=== PATIENT | male | born 1950 | race Caucasian/White ===

== ENCOUNTER → 2023-04-29 13:48 | Outpatient (REF) | payer MEDICARE, SELFPAY | LOC: RCS 13:48 | PROVIDERS: ATTENDING PHYSICIAN Internal Medicine Cardiovascular Disease; FAMILY PHYSICIAN Family Medicine | DX: I48.21 Permanent atrial fibrillation (principal); R06.00 Dyspnea, unspecified | CPT/HCPCS: 93306; 93356 ==

== ENCOUNTER → 2023-08-07 10:23 | Outpatient (REF) | payer MEDICARE, SELFPAY | LOC: RAD 10:23 | PROVIDERS: ATTENDING PHYSICIAN Internal Medicine Cardiovascular Disease; FAMILY PHYSICIAN Family Medicine | DX: I50.30 Unspecified diastolic (congestive) heart failure (principal) | CPT/HCPCS: 78803; A9538 ==

== ENCOUNTER 2023-09-25 17:31 | Emergency (ER) | payer MEDICARE, SELFPAY ==
[2023-09-25] VITALS (17 sets, daily range): BP systolic 116–173; BP diastolic 60–92; BMI 31.3
--- NOTE | 2023-09-25 18:15 | ED.GENMED ---
History of Present Illness
<MARK Olguin - Last Filed: 09/25/23 20:35>
General
Chief Complaint: Numbness
Source: patient
Exam Limitations: none
Time Seen by Provider: 09/25/23 17:56
History of Present Illness
History of Present Illness:
This is a 73 year old male that comes in with c/o tingling and numbness on the left sided of his body. States that he started with tingling going down his left arm. States that this subsided and then he started with this very slight numbness in the
left arm, face and leg. States that there was no injuries and he had not taken a nap and slept on that side. States that he is on Eliquis. State that his Tinnitus is bothering him and he feels very slightly lightheaded. Denies any fever, chills,
chest pain, SOB, abd pain, nausea, vomiting, diarrhea, headache, urinary burning.
Past History
<MARK Olguin - Last Filed: 09/25/23 20:35>
Past History
ED Past Medical History: Arrthythmia (Atrial fib) and Other (Headache, Vocal cord paralysis, Vertigo, Tinnitus, Celiac, Anemia, Being worked up for Cardiac amyloidosis)
ED Past Surgical History: Appendectomy, Orthopedic (Bilateral carpal tunnel, ) and Other (Prior Trach, discectomy, cataracts)
Social History
Tobacco: Non-smoker
Alcohol: Occasional
Personal:
Living: with family
Review of Systems
<MARK Olguin - Last Filed: 09/25/23 20:35>
Review of Systems
All Other Systems: ROS reviewed and negative except as documented in HPI and ROS
Constitutional: Reports no symptoms; Denies fever or chills
EENT: Reports no symptoms
Respiratory: Reports no symptoms; Denies cough or trouble breathing
Cardiac: Reports no symptoms; Denies chest pain
ABD/GI: Reports no symptoms; Denies abdominal pain, nausea, vomiting or diarrhea
: Reports no symptoms; Denies dysuria, frequency or urgency
Musculoskeletal: Reports no symptoms
Skin: Reports no symptoms
Neurological: Reports numbness (and tingling left sided of face, arm and leg) and other (Lightheadedness); Denies headache
Psychiatric: Reports no symptoms
Phy Exam
<MARK Olguin - Last Filed: 09/25/23 20:35>
General Physical Exam
General Presentation: well appearing and no apparent distress
General age: appears stated age
General Skin: warm and dry
General Habitus: elderly
General Mental: alert
General Hydration: appears well hydrated
ENT Exam
ENT Exam: TM's normal, pharynx normal and neck supple
Eye Exam
Eye Exam: PERRL and EOMI
Cardiovascular Exam
Cardiovascular Exam: no edema, normal peripheral pulses and irregularly irregular
Pulmonary Exam
Pulmonary Exam: lungs clear, no respiratory distress, no rales, chest non tender, no crackles, no rhonchi, no wheezing and no cough
Gastrointestinal Exam
Gastrointestinal Exam: normal bowel sounds, non tender, soft, no organomegaly, no pulsatile mass and non distended
NIH Stroke Score
Level of Consciousness: 0 - Alert
LOC questions: 0-Answers both correctly
LOC Commands: 0-Performs both correctly
Best Gaze: 0-Normal
Visual Carreon: 0=Normal, no visual loss
Facial palsy: 0=Normal, symmetrical
Motor - Right Arm: 0=No drift 10 seconds
Motor - Left Arm: 0=No drift 10 seconds
Motor - Right Le-No drift 5 seconds
Motor - Left Le-No drift 5 seconds
Limb Ataxia: 0-Absent
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
Best Language: 0-No aphasia
Dysarthria: 0-Normal
Extinction and Inattention: 0-No abnormality
Total Score:: 1
Musculoskeletal Exam
Musculoskeletal Exam: full ROM and no edema
Skin Exam
Skin Exam: normal color, warm/dry, no rash and no petechia
Psychiatric Exam
Psychiatric Exam: normal mood/affect
<Michael Kay DO - Last Filed: 09/25/23 21:53>
NIH Stroke Score
Total Score:: 1
Course
<MARK Olguin - Last Filed: 09/25/23 20:35>
Orders/Labs/Results
Orders:
Orders
09/25/23 17:38
Electrocardiogram (*1) Urgent
Reason for Study: Fatigue / Weakness
EKG- Treatment ONCE
09/25/23 18:15
CT Head W/o Iv Contrast Urgent
Comment:
Reason For Exam: Numbness left sided of body
09/25/23 18:19
Complete Blood Count/With Diff Urgent
Comprehensive Metabolic Panel Urgent
Protime/PTT Urgent
Troponin I Urgent
09/25/23 19:34
Neurosurgery Consult Urgent
Consulting Provider: Jorge Deras
Was physician already notified: Yes
09/25/23 19:43
Prothrombin Complex(Pcc),Human [Kcentra] 2,156 unit Empty Viaflex Container 100 ml [Viaflex Empty Container] 80 ml IV NOW
Does patient have a dx of serious acute active bleeding?: Yes
Does patient have prior history of HIT?: No
Urgent surgery/invasive procedure planned in next 6 hours?: No
09/25/23 21:52
Labetalol HCl [Trandate] 10 mg IV NOW STA
Abnormal Lab Results
09/25/23
18:19
RBC 3.74 L 10^6/uL
(4.70-6.10)
Hgb 11.1 L g/dL
(13.0-18.0)
Hct 33.5 L %
(39.0-52.0)
Absolute Monos (auto) 1.0 H 10^3/uL
(0.1-0.6)
Lymphocytes % 18.8 L %
(20.5-51.1)
Monocytes % 13.1 H %
(1.7-9.3)
Sodium 134 L mmol/L
(135-145)
09/25/23 18:19
09/25/23 18:19
H/H slightly low. Troponin <0.012, PT 13.6 with INR 1.03, PTT 30.9
Vital Signs
Initial and Last Documented VS:
Initial Vital Signs
Temp Pulse Resp BP Pulse Ox
99.2 F 73 18 153/92 98
09/25/23 17:33 09/25/23 17:33 09/25/23 17:33 09/25/23 17:33 09/25/23 17:33
Last Documented Vital Signs
Temp Pulse Resp BP Pulse Ox
99.2 F 74 13 127/73 95
09/25/23 17:33 09/25/23 21:00 09/25/23 20:00 09/25/23 21:00 09/25/23 20:45
Fur Scraper consulted with Physician
Fur Scraper consulted with physician?: Yes
Name of Physician Consulted: Dr. Kay
<Michael Kay, DO - Last Filed: 09/25/23 21:53>
Orders/Labs/Results
Orders:
Orders
09/25/23 17:38
Electrocardiogram (*1) Urgent
Reason for Study: Fatigue / Weakness
EKG- Treatment ONCE
09/25/23 18:15
CT Head W/o Iv Contrast Urgent
Comment:
Reason For Exam: Numbness left sided of body
09/25/23 18:19
Complete Blood Count/With Diff Urgent
Comprehensive Metabolic Panel Urgent
Protime/PTT Urgent
Troponin I Urgent
09/25/23 19:34
Neurosurgery Consult Urgent
Consulting Provider: Jorge Deras
Was physician already notified: Yes
09/25/23 19:43
Prothrombin Complex(Pcc),Human [Kcentra] 2,156 unit Empty Viaflex Container 100 ml [Viaflex Empty Container] 80 ml IV NOW
Does patient have a dx of serious acute active bleeding?: Yes
Does patient have prior history of HIT?: No
Urgent surgery/invasive procedure planned in next 6 hours?: No
09/25/23 21:52
Labetalol HCl [Trandate] 10 mg IV NOW STA
Abnormal Lab Results
09/25/23
18:19
RBC 3.74 L 10^6/uL
(4.70-6.10)
Hgb 11.1 L g/dL
(13.0-18.0)
Hct 33.5 L %
(39.0-52.0)
Absolute Monos (auto) 1.0 H 10^3/uL
(0.1-0.6)
Lymphocytes % 18.8 L %
(20.5-51.1)
Monocytes % 13.1 H %
(1.7-9.3)
Sodium 134 L mmol/L
(135-145)
09/25/23 18:19
09/25/23 18:19
Vital Signs
Initial and Last Documented VS:
Initial Vital Signs
Temp Pulse Resp BP Pulse Ox
99.2 F 73 18 153/92 98
09/25/23 17:33 09/25/23 17:33 09/25/23 17:33 09/25/23 17:33 09/25/23 17:33
Last Documented Vital Signs
Temp Pulse Resp BP Pulse Ox
99.2 F 74 13 127/73 95
09/25/23 17:33 09/25/23 21:00 09/25/23 20:00 09/25/23 21:00 09/25/23 20:45
<MARK Olguin - Last Filed: 09/25/23 20:35>
MDM/Problems Addressed
Differential Diagnosis Includes:
Parasthesias, CVA
MDM/Problems Addressed:
This is a 73 year old male that comes in with c/o numbness and tingling of the left face, arm and leg. States that it started first with Tingling and then this went away and there was very slightly numbness on the left side. Patient is on Eliquis.
Will get labs, CT scan.
Spoke with Dr. Deras neuro surgery. Reviewed CT scan. Awaiting to see if patient can stay here.
Ordered for the Eliquis to be revered and patient can stay here.
Hospitalist will not except patient due to the Eliquis patient was taking. Spoke with Dr. Meade at [facility] as this is the ICU attending and he will except patient. Dr. Deras also is aware of patient and he will be transferred to [facility]. .
Chronic conditions affecting care:
NA
Acute Exacerbation and/or Progression of Chronic Illness:
NA
<MARK Olguin - Last Filed: 09/25/23 20:35>
*Radiology
Radiology exam reviewed: radiology read reviewed (CT-Small right basal ganglia hemorrhage, most commonly secondary to long-standing hypertension)
*Pulse Oximetry
Patient hypoxic: no
*EKG
Interpreted by ED Provider?: Yes
Heart Rate: 68
Rate: normal
Rhythm: a-fib
Anderson: normal axis
QRS Pattern: normal QRS
Ischemia: no ischemia
*Scow Captain Interpretation
Rate: normal
Heart Rate: 81
Rhythm: a-fib
*Critical Care Note
Total Time (30-74mins, 75-104mins- exclusive of procedures): Not Applicable
ED Attending Note
<MARK Olguin - Last Filed: 09/25/23 20:35>
-
Portions of this chart may have been created with voice recognition software.� Occasional wrong word or��sound alike� substitutions may have occurred due to the inherent limitations of voice recognition software.
<Michael Kay DO - Last Filed: 09/25/23 21:53>
ED Attending Note
Patient seen and examined by attending physician: Yes
I performed the substantive portion of visit, reviewed & personally made and approve the management plan that is documented in note by myself or GET.: Yes
ED Attending Note:
73-year-old male presents with left-sided paresthesias, left arm subtle weakness and uncoordination and tripping over his left foot. Symptoms began at 5 PM. Patient has a vague sense of a headache. He does take Eliquis. Last dose was this
morning. Patient is right-hand dominant.
General: Awake, Alert, Oriented X3. No acute distress.
Vitals: unremarkable
Head: Atraumatic
Eyes: Pupils equal, EOMI
Throat: Airway intact, no exudates
Neck: Trachea midline
Lungs: Clear and equal b/l
Heart: Regular rate, no murmurs
Abd: Soft, Nontender, No pulsatile mass
Neuro: Cranial nerves intact, mild left lower extremity drift, mild decrease sensation left face
Skin: Warm, dry, no rash
Extremities: pulses equal b/l, no edema
CT shows small right basal ganglia hemorrhage likely related to hypertension. I discussed the patient's presentation with Dr. Deras who is on-call for neurosurgery. He recommends reversal of Eliquis but patient cannot stay here for
observation as this is very unlikely to ever require surgical intervention
Critical care statement: A total of 32 minutes of critical care time was provided for this patient. This includes management of unstable vital signs, evaluation of the patient at bedside, reviewing the patient's pertinent medical records, discussion
with consultants, review of old EKGs and review of pertinent medical records. This time with separate from time utilized to perform the aforementioned documented procedures
Discharge Plan
Departure
Patient Disposition: Acute Care Hospital
Date of Disposition: 09/25/23
Time of Disposition: 20:28
Admit to: ICU
Patient with high blood pressure during this ER visit?: Yes
Condition: Good
Covid-19: Not Applicable
Discharge Problem:
Right basal ganglia Hemorrhage
Prescriptions:
No Action
amlodipine 5 mg Tablet
5 mg PO HS
folic acid 400 mcg Tablet
0.4 mg PO DAILY
furosemide 20 mg Tablet
20 mg PO BID
metoprolol succinate 25 mg Tablet Extended Release 24 Hr
25 mg PO HS
Eliquis 5 mg Tablet
5 mg PO BID
Jardiance 10 mg Tablet
10 mg PO DAILY
cyanocobalamin (vitamin B-12) 1,000 mcg Tablet
1,000 mcg PO DAILY
ferrous sulfate 325 mg (65 mg iron) Tablet
325 mg PO MOWEFR
docusate sodium 100 mg Tablet
100 mg PO DAILYPRN PRN (Reason: constipation)
Visbiome 112.5 billion cell Capsule
1 cap PO DAILY
Referrals:
UNKNOWN - PT DOES,NOT KNOW [Family Provider] -
Hospital Transfer
Other hospital: [facility]
I certify that the patient requires transfer: Yes
Discussed case with accepting physician: Dr. Meade
Reason for transfer: higher level of care and specialties available
Interventions
Interventions:
*Risk Screen - Suicide Last Done: 09/25/23 17:33
*General Assessment Last Done: 09/25/23 17:33
*Neglect/Abuse Screening Last Done: 09/25/23 17:33
ED- Fall Risk Assessment Last Done: 09/25/23 18:04
*ED COVID-19 Vaccine History Last Done: 09/25/23 17:33
ED- Neurological Assessment Last Done: 09/25/23 19:15
Discharge Date and Time
Print Language: ERITREAN
[2023-09-25 18:31] LABS: % Basophils 0.4 % (0-2); % Eosinophils 1.1 % (0-6); % Immature Granulocytes 0.1 % (0-0.5); % Lymphocytes 18.8 % (20.5-51.1); % Monocytes 13.1 % (1.7-9.3); % Neutrophils 66.5 % (42.2-75.2); Absolute Eosinophils 0.1 10^3/uL (0-0.7); Absolute Lymphocytes 1.4 10^3/uL (1.2-3.4); Hematocrit 33.5 % (39.0-52.0); Hemoglobin 11.1 g/dL (13.0-18.0); Mean Corp Hgb Conc. 33.1 g/dL (33.0-37.0); Mean Corpuscular Hgb 29.7 pg (27.0-31.0); Mean Corpuscular Volume 89.6 fL (80.0-94.0); Mean Platelet Volume 8.6 fL (7.4-10.4); Nucleated Red Blood Cells % 0 % (-); Platelet Count 270 10^3/uL (130-400); Red Blood Cell Count 3.74 10^6/uL (4.70-6.10); Red Cell Dist. Width 12.7 % (11.5-14.5); White Blood Cell Count 7.6 10^3/uL (4.8-10.8)
[2023-09-25 18:42] LABS: INR 1.03; PT 13.6 Sec (11.4-14.6)
[2023-09-25 18:43] LABS: APTT 30.9 Sec (23.4-35.0)
[2023-09-25 18:57] LABS: Troponin I < 0.012 ng/ml
[2023-09-25 19:05] LABS: ALT (SGPT) 32 U/L (0-50); AST (SGOT) 33 U/L (17-59); Albumin 4.3 g/dl (3.5-5.0); Alkaline Phosphatase 119 U/L (38-126); Blood Urea Nitrogen 20 mg/dl (9-20); Calcium 8.6 mg/dl (8.4-10.2); Carbon Dioxide 26 mmol/L (22-30); Chloride 100 mmol/L (98-107); Estimated Creatinine Clearance 75 ml/min; Glucose 91 mg/dl (70-99); Potassium 4.6 mmol/L (3.5-5.1); Sodium 134 mmol/L (135-145); Total Bilirubin 0.4 mg/dl (0.2-1.3); Total Protein 6.7 g/dl (6.3-8.2); eGFR > 60.00
--- NOTE | 2023-09-25 19:15 | EDRN ---
Report received, introduced myself to patient and updated medication list, Dr. Kay in speaking with patient and his as well.
[2023-09-25] MEDS: KCENTRA 80 UNIT IV (19:57)
--- NOTE | 2023-09-25 20:10 | EDRN ---
Patient ambulated into the restroom and back in bed resting comfortably, call dickerson in reach, waiting on plan.
--- NOTE | 2023-09-25 21:17 | EDRN ---
Patient updated on status of transfer status, lights turned down for patients comfort, Neuro exam remains the same, patient watching TV and will keep him updated on transfer status
[2023-09-25] MEDS: TRANDATE 10 MG IV (21:53)
--- NOTE | 2023-09-25 21:53 | EDRN ---
patients BP starting to trend up, Dr. Kay aware and ordering medications to be given.
--- NOTE | 2023-09-25 23:17 | EDRN ---
Patients Bp is stable and within limits, waiting on transport at this time, call dickerson in reach, will continue to monitor status.
--- NOTE | 2023-09-25 23:47 | EDRN ---
Patient ambulated to restroom and back in bed resting comfortably at this time, provided a blanket, neuro symptoms remain the same, patient updated on delay in transport
[2023-09-26] VITALS: BP 123/64
--- NOTE | 2023-09-26 00:01 | EDRN ---
Report to Mojgan Muro at [facility]
[2023-09-26 00:20] VITALS: BP 122/64
== END 2023-09-26 00:59 | disposition short-term general hospital (02) ==
LOC: EMR 17:31
PROVIDERS: Emergency Medicine; CONSULT PHYSICIAN Neurological Surgery; EMERGENCY PHYSICIAN Emergency Medicine
DX: R20.0 Anesthesia of skin (principal); I48.91 Unspecified atrial fibrillation; I61.0 Nontraumatic intracerebral hemorrhage in hemisphere, subcortical
CPT/HCPCS: 99284; 96374; 96375; 70450; 80053; 84484; 85025; 85610; 85730; 93005; J7168

== ENCOUNTER → 2023-10-08 07:24 | Outpatient (REF) | payer MEDICARE, SELFPAY | LOC: HWRAD 07:24 | PROVIDERS: ATTENDING PHYSICIAN Nurse Practitioner Family; FAMILY PHYSICIAN Family Medicine | DX: I62.9 Nontraumatic intracranial hemorrhage, unspecified (principal) | CPT/HCPCS: 70450 ==

== ENCOUNTER → 2023-12-03 07:45 | Outpatient (REF) | payer MEDICARE, SELFPAY ==
--- NOTE | 2023-11-25 09:43 | WATCHMAN ---
Watchman
[facility] Procedure
Referred by:: Denia/Angie
Date of Referral:: 11/24/23
[id number] Score
Age in Years (65=0, 65-74=1, >/=75=2): 65-74
Sex (Female=+1): Male
Congestive Heart Failure History (Yes=+1): Yes
Hypertension History (Yes=+1): Yes
Stroke/TIA/Thromboembolism History (Yes=+2): Yes
Vascular Disease History (Yes=+1): No
Diabetes Mellitus (Yes=+1): No
Score: 5
Anticoagulation Recommendations: Recommend anticoagulation (as validated in nonvalvular fib)
HASBLED Score
Hypertenstion (uncontrolled >160mmHG systolic): No
Renal disease (dialysis, transplant, Cr >2.26mg/dL or >200umol/L): No
Liver disease (cirrhosis or bilirubin >2x normal w/ AST/ALT/AP >3x normal: No
Stroke history: Yes
Prior major bleeding or predisposition to bleeding: Yes
Labile INR(unsable/high INRs,time in therapeutic range <60%): No
Age >65: Yes
Medication usage predisposing to bleeding(ASA, NSAIDS): No
Alcohol use (>/= 8 drinks/week): No
Score: 3
Risk: Alternatives to anticoagulation should be considered: Patient is at high risk for major bleeding
Electrocardiogram
Interpretation: abnormal
Heart Rate: 70
Rate: normal
Rhythm: a-fib
Physician Visits
Visual Effects Artist:: Angie
Date of Visit:: 11/24/23
Primary Credit Underwriter:: Lui Welch
Date of Visit:: 10/21/23
PCP:: Freddy Leggett
Oral Anticoagulation
Post procedure anticoagulation plan:: Eliquis 5mg po BID x 6 weeks and if no leak stop Eliquis and begin DAPT for 6 months then ASA daily
Plan
Plan:: 11/24/2023: Consult received.
11/25/2023: Spoke with patient and provided with contact information. Confirmed CT scan scheduled for 12/02. Allowed for and answered questions.
== END ==
LOC: RAD 07:45
PROVIDERS: ATTENDING PHYSICIAN Internal Medicine Cardiovascular Disease; FAMILY PHYSICIAN Family Medicine
DX: I63.81 Other cerebral infarction due to occlusion or stenosis of small artery (principal)
CPT/HCPCS: 75572; Q9967

== ENCOUNTER → 2024-03-02 08:33 | Outpatient (REF) | payer MEDICARE, SELFPAY | LOC: RAD 08:33 | PROVIDERS: ATTENDING PHYSICIAN Internal Medicine Interventional Cardiology; FAMILY PHYSICIAN Family Medicine | DX: I48.0 Paroxysmal atrial fibrillation (principal); I48.21 Permanent atrial fibrillation | CPT/HCPCS: 75572; Q9967 ==

== ENCOUNTER → 2024-05-11 14:08 | Outpatient (REF) | payer MEDICARE, SELFPAY | LOC: RAD 14:08 | PROVIDERS: ATTENDING PHYSICIAN Nurse Practitioner Family | DX: M79.662 Pain in left lower leg (principal) | CPT/HCPCS: 93971 ==

== ENCOUNTER 2024-05-27 07:06 | Day surgery (SDC) | payer MEDICARE, SELFPAY | END 2024-05-27 11:12 | disposition home or self-care (01) | LOC: CATH 07:06 | PROVIDERS: ATTENDING PHYSICIAN Nuclear Medicine Nuclear Cardiology; FAMILY PHYSICIAN Family Medicine; OTHER PHYSICIAN Internal Medicine Cardiovascular Disease | DX: I48.91 Unspecified atrial fibrillation (principal); I08.1 Rheumatic disorders of both mitral and tricuspid valves; I70.0 Atherosclerosis of aorta; Z79.01 Long term (current) use of anticoagulants; Z79.84 Long term (current) use of oral hypoglycemic drugs; Z79.899 Other long term (current) drug therapy | CPT/HCPCS: 93312; 93320; 93325 ==

== ENCOUNTER 2024-08-03 16:17 | Emergency (ER) | payer MEDICARE, SELFPAY ==
[2024-08-03 16:17] VITALS: BMI 29.0
[2024-08-03 16:31] VITALS: BP 139/71
[2024-08-03 17:14] LABS: % Basophils 0.4 % (0-2); % Eosinophils 0.7 % (0-6); % Immature Granulocytes 0.3 % (0-0.5); % Lymphocytes 19.4 % (20.5-51.1); % Monocytes 11.9 % (1.7-9.3); % Neutrophils 67.3 % (42.2-75.2); Absolute Eosinophils 0.1 10^3/uL (0-0.7); Absolute Lymphocytes 1.5 10^3/uL (1.2-3.4); Absolute Monocytes 0.9 10^3/uL (0.1-0.6); Absolute Neutrophils 5.1 10^3/uL (1.4-6.5); Hematocrit 37.6 % (39.0-52.0); Hemoglobin 12.2 g/dL (13.0-18.0); Mean Corp Hgb Conc. 32.4 g/dL (33.0-37.0); Mean Corpuscular Hgb 29.9 pg (27.0-31.0); Mean Corpuscular Volume 92.2 fL (80.0-94.0); Mean Platelet Volume 8.6 fL (7.4-10.4); Nucleated Red Blood Cells % 0 % (-); Platelet Count 314 10^3/uL (130-400); Red Blood Cell Count 4.08 10^6/uL (4.70-6.10); Red Cell Dist. Width 12.8 % (11.5-14.5); White Blood Cell Count 7.6 10^3/uL (4.8-10.8)
[2024-08-03 17:26] LABS: APTT 32.7 Sec (23.4-35.0)
[2024-08-03 17:36] LABS: ALT (SGPT) 27 U/L (0-50); AST (SGOT) 28 U/L (17-59); Albumin 4.4 g/dl (3.5-5.0); Alkaline Phosphatase 114 U/L (38-126); Blood Urea Nitrogen 13 mg/dl (9-20); Calcium 8.9 mg/dl (8.4-10.2); Carbon Dioxide 26 mmol/L (22-30); Chloride 103 mmol/L (98-107); Glucose 93 mg/dl (70-99); Potassium 4.8 mmol/L (3.5-5.1); Sodium 139 mmol/L (135-145); Total Bilirubin 1.1 mg/dl (0.2-1.3); Total Protein 6.7 g/dl (6.3-8.2); eGFR > 60.00
[2024-08-03 19:32] VITALS: BP 155/69
--- NOTE | 2024-08-03 19:50 | ED.CVA ---
History of Present Illness
General
Chief Complaint: CVA/TIA Symptoms
Time Seen by Provider: 08/03/24 19:27
Onset of Stroke Symptoms
Onset of symptoms known: Yes
Date of onset of symptoms: 08/03/24
Time of onset of symptoms: 10:00
History of Present Illness
History of Present Illness:
74-year-old female with history of chronic A-fib on Eliquis presenting to the emergency department for numbness and tingling to the left side of the face and left upper extremity. Patient reports symptoms started this morning around 10 AM. He was
getting ready for work and stood up and felt lightheaded with subsequent symptoms. Symptoms lasted about an hour, are mostly resolved, does note some residual numbness to his face. Patient reports concern because he had a hemorrhagic stroke in
August and had similar symptoms at that time. Patient denies any traumatic etiology at that time. He denies any weakness. He denies any visual changes. He denies chest pain or difficulty breathing. He denies additional acute medical complaints.
Past History
Past History
ED Past Medical History: Arrthythmia (Atrial fib) and Other (Headache, Vocal cord paralysis, Vertigo, Tinnitus, Celiac, Anemia, Being worked up for Cardiac amyloidosis)
ED Past Surgical History: Appendectomy, Orthopedic (Bilateral carpal tunnel, ) and Other (Prior Trach, discectomy, cataracts)
Social History
Tobacco: Non-smoker
Alcohol: Occasional
Personal:
Living: with family
Phy Exam
Physical Exam
Physical Exam:
General: Well-appearing, no clinical signs of dehydration, nontoxic and in no acute distress
HEENT: protecting airway
Neck: appears supple
CV: Normal heart rate, regular rhythm
Resp: No accessory muscle use, no increased work of breathing, lungs clear to auscultation bilaterally
Abd: Soft and non-distended, no tenderness to palpation
Extremities: No deformities, no swelling
Neuro: alert, no focal neurologic deficit
: deferred
Rectal: deferred
Psych: Normal affect
Skin: Intact
Scores
NIH Stroke Score
Level of Consciousness: 0 - Alert
LOC Questions: 0-Answers both correctly
LOC Commands: 0-Performs both correctly
Best Horizontal Gaze: 0-Normal
Visual Carreon: 0=Normal, no visual loss
Facial Palsy: 0=Normal, symmetrical
Motor - Right Arm: 0=No drift 10 seconds
Motor - Left Arm: 0=No drift 10 seconds
Motor - Right Le-No drift 5 seconds
Motor - Left Le-No drift 5 seconds
Limb Ataxia: 0-Absent
Sensation: 0-Normal
Best Language: 0-No aphasia
Dysarthria: 0-Normal
Extinction and Inattention: 0-No abnormality
Total Score:: 0
Course
Orders/Labs/Results
Orders:
Orders
08/03/24 16:35
CT Head W/o Iv Contrast Urgent
Comment:
Reason For Exam: L facial numbness, hand and arm
08/03/24 16:36
Electrocardiogram (*1) Urgent
Reason for Study: TIA/Stroke
EKG- Treatment ONCE
08/03/24 16:46
Complete Blood Count/With Diff Urgent
Comprehensive Metabolic Panel Urgent
PTT Urgent
08/03/24 19:47
CT Head & Neck Angio W/wo IV Urgent
Comment:
Reason For Exam: L-sided numbness, hx hemorrhagic stroke
Abnormal Lab Results
08/03/24
16:46
RBC 4.08 L 10^6/uL
(4.70-6.10)
Hgb 12.2 L g/dL
(13.0-18.0)
Hct 37.6 L %
(39.0-52.0)
MCHC 32.4 L g/dL
(33.0-37.0)
Absolute Monos (auto) 0.9 H 10^3/uL
(0.1-0.6)
Lymphocytes % 19.4 L %
(20.5-51.1)
Monocytes % 11.9 H %
(1.7-9.3)
08/03/24 16:46
08/03/24 16:46
Vital Signs
Initial and Last Documented VS:
Initial Vital Signs
Temp Pulse Resp BP Pulse Ox
98.6 F 75 16 139/71 96
08/03/24 16:31 08/03/24 16:31 08/03/24 16:31 08/03/24 16:31 08/03/24 16:31
Last Documented Vital Signs
Temp Pulse Resp BP Pulse Ox
98.6 F 60 14 124/74 97
08/03/24 16:31 08/03/24 21:00 08/03/24 21:00 08/03/24 21:00 08/03/24 21:00
MDM/Problems Addressed
MDM/Problems Addressed:
74-year-old male with prior history of hemorrhagic stroke and A-fib on Eliquis presenting for numbness to the left side of face and arm which has mostly resolved. Vital signs are significant for mild hypertension.
On exam, patient resting comfortably, no acute distress. Notes that his symptoms have mostly resolved, some slight residual numbness to the left side of face. NIH stroke scale at this time is 0. Patient initially evaluated through triage with CT
obtained, noncontrast. CT results are with no acute abnormal findings, no hemorrhagic stroke or ischemic stroke. Given patient's history, will obtain CT angio of the head and neck. Patient otherwise at this time is hemodynamically stable.
22:20 -CT angio without acute occlusions. 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 On reassessment, patient reports that his symptoms have resolved. In discussion with neurology, feel reasonable for discharge
given hemodynamic stability and improvement of symptoms. Recommendation for outpatient follow-up. Will provide vascular follow-up given ICA stenosis, and advising outpatient PCP follow-up for potential MRI imaging. Strict return precautions
communicated and patient verbalized understanding
*Critical Care Note
Total Time (30-74mins, 75-104mins- exclusive of procedures): Not Applicable
ED Attending Note
-
Portions of this chart may have been created with voice recognition software.� Occasional wrong word or��sound alike� substitutions may have occurred due to the inherent limitations of voice recognition software.
Discharge Plan
Departure
Prescriptions:
No Action
amlodipine 5 mg Tablet
5 mg PO HS
folic acid 400 mcg Tablet
0.4 mg PO DAILY
furosemide 20 mg Tablet
20 mg PO BID
metoprolol succinate 25 mg Tablet Extended Release 24 Hr
25 mg PO HS
Eliquis 5 mg Tablet
5 mg PO BID
Jardiance 10 mg Tablet
10 mg PO DAILY
cyanocobalamin (vitamin B-12) 1,000 mcg Tablet
1,000 mcg PO DAILY
ferrous sulfate 325 mg (65 mg iron) Tablet
325 mg PO MOWEFR
docusate sodium 100 mg Tablet
100 mg PO DAILYPRN PRN (Reason: constipation)
Visbiome 112.5 billion cell Capsule
1 cap PO DAILY
Referrals:
Freddy Leggett MD [Family Provider] -
Interventions
Interventions:
*Risk Screen - Suicide Last Done: 08/03/24 19:34
*Neglect/Abuse Screening Last Done: 08/03/24 19:34
ED- Cardiac Assessment Last Done: 08/03/24 19:34
ED- Neurological Assessment Last Done: 08/03/24 19:34
ED- Pulmonary Assessment Last Done: 08/03/24 19:34
ED Swallowing Screen Last Done: 08/03/24 19:37
Discharge Date and Time
Print Language: MONGOLIAN
[2024-08-03 21:00] VITALS: BP 124/74
[2024-08-03 22:31] VITALS: BP 122/72
== END 2024-08-03 22:32 | disposition home or self-care (01) ==
LOC: EMR 16:17
PROVIDERS: Emergency Medicine; EMERGENCY PHYSICIAN Student in an Organized Health Care Education/Training Program; FAMILY PHYSICIAN Family Medicine
DX: R20.0 Anesthesia of skin (principal); R20.2 Paresthesia of skin; I65.22 Occlusion and stenosis of left carotid artery; I48.20 Chronic atrial fibrillation, unspecified; J38.00 Paralysis of vocal cords and larynx, unspecified; K90.0 Celiac disease; D64.9 Anemia, unspecified; Z86.73 Personal history of transient ischemic attack (TIA), and cerebral infarction without residual deficits; Z79.01 Long term (current) use of anticoagulants; Z91.018 Allergy to other foods
CPT/HCPCS: 99284; 70450; 70496; 70498; 80053; 85025; 85730; 93005; Q9967

== ENCOUNTER → 2024-08-27 11:36 | Outpatient (REF) | payer MEDICARE, SELFPAY | LOC: RAD 11:36 | PROVIDERS: ATTENDING PHYSICIAN Internal Medicine Cardiovascular Disease; FAMILY PHYSICIAN Family Medicine | DX: I51.3 Intracardiac thrombosis, not elsewhere classified (principal) | CPT/HCPCS: 75572; Q9967 ==

== ENCOUNTER → 2024-10-20 08:24 | Outpatient (REF) | payer MEDICARE, SELFPAY | LOC: RAD 08:24 | PROVIDERS: ATTENDING PHYSICIAN Surgery Vascular Surgery; FAMILY PHYSICIAN Family Medicine; OTHER PHYSICIAN Internal Medicine Cardiovascular Disease | DX: I65.23 Occlusion and stenosis of bilateral carotid arteries (principal) | CPT/HCPCS: 93880 ==

== ENCOUNTER → 2024-10-26 14:51 | Outpatient (REF) | payer MEDICARE, SELFPAY | LOC: MRI 14:51 | PROVIDERS: ATTENDING PHYSICIAN Family Medicine; REFERRING PHYSICIAN Internal Medicine Cardiovascular Disease | DX: G45.9 Transient cerebral ischemic attack, unspecified (principal); R53.1 Weakness; R29.810 Facial weakness | CPT/HCPCS: 70551 ==

== ENCOUNTER → 2025-02-28 15:53 | Outpatient (REF) | payer MEDICARE, SELFPAY | LOC: RCS 15:53 | PROVIDERS: ATTENDING PHYSICIAN Internal Medicine Cardiovascular Disease; FAMILY PHYSICIAN Family Medicine | DX: I48.21 Permanent atrial fibrillation (principal) | CPT/HCPCS: 93306; 93356 ==